=== PATIENT | female | born 1945 | race Caucasian/White ===

== ENCOUNTER 2021-07-25 06:53 | Day surgery (SDC) | payer MEDICARE, BC ==
[2021-07-25] MEDS ORDERED: Lidocaine 1% PF 2 ML SDV INJECT ONE (06:54)
[2021-07-25] MEDS ORDERED: Propofol 200 MG/20 ML SDV IV ONE (06:54)
[2021-07-25] MEDS ORDERED: Sodium Chloride 0.9% 10 ML Syringe FLUSH PRN (07:15)
[2021-07-25] MEDS: Lactated Ringers 1,000 ML IV SCH (07:23)
== END 2021-07-25 10:53 | disposition home or self-care (01) ==
LOC: FB.SDS 06:53
PROVIDERS: ATTEND Surgery
DX: Z12.11 Encounter for screening for malignant neoplasm of colon (principal); K57.30 Diverticulosis of large intestine without perforation or abscess without bleeding; K62.1 Rectal polyp; D12.0 Benign neoplasm of cecum; E66.9 Obesity, unspecified; K21.9 Gastro-esophageal reflux disease without esophagitis; E78.00 Pure hypercholesterolemia, unspecified; Z88.1 Allergy status to other antibiotic agents; Z88.5 Allergy status to narcotic agent; Z98.890 Other specified postprocedural states
CPT/HCPCS: 00812-QZ; 88305; J2704; J7120

== ENCOUNTER 2022-11-23 07:14 | Day surgery (SDC) | payer MEDICARE, BC ==
[2022-11-23] MEDS ORDERED: Lidocaine 2% 5 ML SDV IV ONE (07:15)
[2022-11-23] MEDS ORDERED: Propofol 200 MG/20 ML SDV IV ONE (07:15)
[2022-11-23] MEDS ORDERED: Sodium Chloride 0.9% 10 ML Syringe FLUSH PRN (07:30)
[2022-11-23] MEDS ORDERED: Lactated Ringers 1,000 ML IV SCH (07:30)
[2022-11-23] MEDS ORDERED: Simethicone Drops 40 MG/0.6 ML 30 ML Bottle ONE (09:22)
== END 2022-11-23 10:59 | disposition home or self-care (01) ==
LOC: FB.SDS 07:14
PROVIDERS: ATTEND Surgery
DX: K29.50 Unspecified chronic gastritis without bleeding (principal); K25.9 Gastric ulcer, unspecified as acute or chronic, without hemorrhage or perforation; K29.80 Duodenitis without bleeding; K31.89 Other diseases of stomach and duodenum; J30.9 Allergic rhinitis, unspecified; M19.90 Unspecified osteoarthritis, unspecified site; H26.9 Unspecified cataract; K21.9 Gastro-esophageal reflux disease without esophagitis; E04.2 Nontoxic multinodular goiter; E66.9 Obesity, unspecified; G25.81 Restless legs syndrome; M81.0 Age-related osteoporosis without current pathological fracture; E78.00 Pure hypercholesterolemia, unspecified; Z87.19 Personal history of other diseases of the digestive system; Z88.1 Allergy status to other antibiotic agents; Z88.5 Allergy status to narcotic agent; Z90.710 Acquired absence of both cervix and uterus; Z98.49 Cataract extraction status, unspecified eye; Z98.890 Other specified postprocedural states; Z79.899 Other long term (current) drug therapy
CPT/HCPCS: 00731; 43239; 88305; 88342; A9270; J2704; J7120